=== PATIENT | male | born 1975 | race Hispanic/Latino ===

== ENCOUNTER 2018-07-20 04:02 | Emergency (ER) | payer OTHER ==
[2018-07-20 04:43] VITALS: RESP 18
[2018-07-20] MEDS ORDERED: Lidocaine 5% Patch TD STA (04:49)
[2018-07-20] MEDS ORDERED: Sodium Chloride 0.9% 1,000 ML IV STA (05:04)
--- NOTE | 2018-07-20 05:25 | ED PDOC ---
HPI: Back Chief Complaint (Provider): Back Pain History Per: Patient History/Exam Limitations: no limitations Onset/Duration Of Symptoms: Hrs (x2) Additional Complaint(s): 42 years old male with a history of asthma presents to ER for evaluation of left lower back pain onset 2 hours ago that woke him up from sleep. Patient reports he took 400 mg of Ibuprofen and states since coming to ED noted pain has began to alleviate but still present. He denies trauma, incontinence, dysuria, hematuria, rash, abdominal pain, nausea, vomiting, diarrhea, alleviating movements or positions and history of kidney stones. PMD: None provided <Speedy Walter - Last Filed: 07/20/18 06:18> <Carlos Munoz - Last Filed: 07/20/18 07:07> Time Seen by Provider: 07/20/18 04:43 Chief Complaint (Nursing): Back Pain Past Medical History Reviewed: Historical Data, Nursing Documentation, Vital Signs Vital Signs: Last Vital Signs Temp 97.9 F 07/20/18 04:25 Pulse 66 07/20/18 04:25 Resp 18 07/20/18 04:25 BP 138/85 07/20/18 04:25 Pulse Ox 98 07/20/18 04:25 - Medical History PMH: Asthma Denies: Chronic Kidney Disease - Surgical History Surgical History: No Surg Hx - Family History Family History: States: Unknown Family Hx - Social History Current smoker - smoking cessation education provided: No Alcohol: Social Drugs: Denies <Speedy Walter - Last Filed: 07/20/18 06:18> Vital Signs: Last Vital Signs Temp 97.9 F 07/20/18 04:25 Pulse 66 07/20/18 04:25 Resp 18 07/20/18 04:25 BP 138/85 07/20/18 04:25 Pulse Ox 98 07/20/18 05:31 <Carlos Munoz - Last Filed: 07/20/18 07:07> - Home Medications Home Medications: Ambulatory Orders Medication Instructions Recorded Hydrocodone/Acetaminophen [Vicodin 1 each PO Q8 #15 tablet 07/20/18 Es 7.5-300 mg Tablet] Ibuprofen [Motrin Tab] 600 mg PO Q6 #30 tab 07/20/18 Tamsulosin [Flomax] 0.4 mg PO DAILY #10 cap 07/20/18 - Allergies Allergies/Adverse Reactions: Allergies Allergy/AdvReac Type Severity Reaction Status Date / Time wheat Allergy ITCHING Verified 07/20/18 04:34 Review of Systems ROS Statement: Except As Marked, All Systems Reviewed And Found Negative Gastrointestinal: Negative for: Nausea, Vomiting, Abdominal Pain, Diarrhea Genitourinary Male: Negative for: Dysuria, Incontinence, Hematuria Musculoskeletal: Positive for: Back Pain (Left lower) Skin: Negative for: Rash <Speedy Walter Angelica - Last Filed: 07/20/18 06:18> Physical Exam - Reviewed Nursing Documentation Reviewed: Yes Vital Signs Reviewed: Yes - Physical Exam Appears: Positive for: Well, No Acute Distress Head Exam: Positive for: ATRAUMATIC, NORMOCEPHALIC Skin: Positive for: Normal Color, Warm, Dry Cardiovascular/Chest: Positive for: Regular Rate, Rhythm. Negative for: Murmur Respiratory: Positive for: Normal Breath Sounds. Negative for: Respiratory Distress Gastrointestinal/Abdominal: Positive for: Normal Exam, Soft. Negative for: Te nderness Back: Positive for: Other (Minimal tenderness to left paralumbar spasm). Negative for: L CVA Tenderness, R CVA Tenderness Neurological/Psych: Positive for: Awake, Alert, Oriented (x3) <Speedy Walter Angelica - Last Filed: 07/20/18 06:18> - Laboratory Results Result Diagrams: 07/20/18 05:20 07/20/18 05:20 - ECG O2 Sat by Pulse Oximetry: 98 (RA) Pulse Ox Interpretation: Normal <SabaSpeedy Dominguez - Last Filed: 07/20/18 06:18> - Laboratory Results Result Diagrams: 07/20/18 05:20 07/20/18 05:20 Lab Results: Total Bilirubin 0.4 mg/dl (0.2-1.3) 07/20/18 05:20 AST 22 U/L (17-59) 07/20/18 05:20 ALT 35 U/L (21-72) 07/20/18 05:20 Alkaline Phosphatase 88 U/L (38-126) 07/20/18 05:20 Total Protein 7.1 G/DL (6.3-8.2) 07/20/18 05:20 Albumin 3.9 g/dL (3.5-5.0) 07/20/18 05:20 Globulin 3.2 gm/dL (2.2-3.9) 07/20/18 05:20 Albumin/Globulin Ratio 1.2 (1.0-2.1) 07/20/18 05:20 Urine Color Yellow (YELLOW) 07/20/18 05:13 Urine Clarity Slighty-cloudy (Clear) 07/20/18 05:13 Urine pH 6.0 (5.0-8.0) 07/20/18 05:13 Ur Specific [place] 1.017 (1.003-1.030) 07/20/18 05:13 Urine Protein Negative mg/dL (NEGATIVE) 07/20/18 05:13 Urine Glucose (UA) Neg mg/dL (NEGATIVE) 07/20/18 05:13 Urine Ketones Negative mg/dL (NEGATIVE) 07/20/18 05:13 Urine Blood Large (NEGATIVE) 07/20/18 05:13 Urine Nitrate Negative (NEGATIVE) 07/20/18 05:13 Urine Bilirubin Negative (NEGATIVE) 07/20/18 05:13 Urine Urobilinogen 2.0 mg/dL (0.2-1.0) 07/20/18 05:13 Ur Leukocyte Esterase Neg Filomena/uL (Negative) 07/20/18 05:13 Urine RBC (Auto) 1345 /hpf (0-3) H 07/20/18 05:13 Urine Microscopic WBC 4 /hpf (0-5) 07/20/18 05:13 <Carlos Munoz - Last Filed: 07/20/18 07:07> Medical Decision Making Medical Decision Making: Time: 0503 Initial Plan: --CT Abdomen/Pelvis --CMP --Urine dipstick --CBC --Flexeril 10 mg PO --Lidoderm 1 ea TD --Urine culture --LS Spine X-Ray --Urinalysis U-dip shows large blood trace leuks Patient is informed of plan Scribe Attestation: Documented by Ludy Judge, acting as a scribe for DEVAUGHN Moreno. Provider Scribe Attestation: All medical record entries made by the Scribe were at my direction and personally dictated by me. I have reviewed the chart and agree that the record accurately reflects my personal performance of the history, physical exam, med [facility] decision making, and the department course for this patient. I have also personally directed, reviewed, and agree with the discharge instructions and disposition. <Speedy Walter E - Last Filed: 07/20/18 06:18> Medical Decision Makin Patient endorsed to me by DEVAUGHN Moreno, pending CT Abdomen/Pelvis. 06 CT Abdomen/Pelvis FINDINGS: The visualized lung bases are unremarkable. Normal unenhanced liver. Normal gallbladder and extrahepatic biliary system. Normal unenhanced spleen. Normal pancreas. Normal bilateral adrenal glands. Normal size of the right kidney. There is no right renal mass. There are no right renal calculi. There is no right hydronephrosis. Normal visualized right ureter. Normal size of the left kidney. There is no left renal mass. There are no left renal calculi. 4 mm obstructing stone of the left ureter at L3. Mild left hydroureteronephrosis. Normal visualized stomach. Normal small intestine. Normal colon. The appendix is visualized and appears normal. There is no demonstrated peritoneal fluid. Normal abdominal aorta. Normal inferior vena cava. Normal retroperitoneum. 3 mm nonobstructing stone in the right aspect of the diffusely thickened urinary bladder. There is no pelvic mass lesion or lymphadenopathy. There is no pelvic fluid. Mild prostatomegaly. Fat containing right inguinal hernia without incarceration. Fat containing umbilical hernia without incarceration. Normal osseous structures. IMPRESSION: Obstructing stone of the left ureter. Nonobstructing stone in the right aspect of the bladder. Mild prostatomegaly. Advised patient of results, patient states he feels a little sore but much better Advised patient that stone will likely pass on its own, but advised close followup with urology Advised patient that he should only take vicodin as absolutely necessary and advised him of its addictive potential Patient is very well appaering upon disharge Scribe Attestation: Documented by Ludy Judge, acting as a scribe for Carlos Munoz MD. Provider Scribe Attestation: All medical record entries made by the Scribe were at my direction and personally dictated by me. I have reviewed the chart and agree that the record accurately reflects my personal performance of the history, physical exam, medical decision making, and the department course for this patient. I have also personally directed, reviewed, and agree with the discharge instructions and disposition. <Carlos Munoz - Last Filed: 07/20/18 07:07> Disposition - Patient ED Disposition Is Patient to be Admitted: Transfer of Care (Dr. Munoz continued care at the end of my shift) - Disposition Disposition Time: 06:00 <Speedy Walter - Last Filed: 07/20/18 06:18> - Patient ED Disposition Is Patient to be Admitted: No - Disposition Disposition: Routine/Home Disposition Time: 07:06 <Carlos Munoz - Last Filed: 07/20/18 07:07> - Clinical Impression Clinical Impression: Hematuria, Kidney stone - Disposition Referrals: Oleksandr Scott MD [Medical Doctor] - Condition: IMPROVED Prescriptions: Hydrocodone/Acetaminophen [Vicodin Es 7.5-300 mg Tablet] 1 each PO Q8 #15 tablet Ibuprofen [Motrin Tab] 600 mg PO Q6 #30 tab Tamsulosin [Flomax] 0.4 mg PO DAILY #10 cap Instructions: Kidney Stones in Adults, Kidney Stone Diet, How to Strain Your Urine, Taking Narcotics Safely, Opioids for Short-Term Treatment of Pain Forms: [employer] [facility] (Amharic)
[2018-07-20 05:29] LABS: URINE BILIRUBIN NEGATIVE (NEGATIVE); URINE BLOOD LARGE (NEGATIVE); URINE CLARITY SLIGHTY-CLOUDY (Clear); URINE COLOR YELLOW (YELLOW); URINE GLUCOSE (UA) NEG (NEGATIVE); URINE LEUKOCYTE ESTERASE NEG Leu/uL (Negative); URINE PROTEIN NEGATIVE (NEGATIVE)
[2018-07-20 05:30] LABS: BASO # 0.1 K/uL (0.0-0.2); BASO % 1.3 % (0.0-2.0); EOS # 0.2 K/uL (0.0-0.7); EOS % 3.6 % (0.0-4.0); HEMOGLOBIN 14.1 g/dL (12.0-18.0); LYMPH # 0.9 K/uL (1.0-4.3); LYMPH % 17.5 % (20.0-40.0); MEAN CORPUSCULAR HEMOGLOBIN 29.5 pg (27.0-31.0); MEAN CORPUSCULAR HGB CONC 33.1 g/dL (33.0-37.0); MONO # 0.3 K/uL (0.0-0.8); MONO % 6.8 % (0.0-10.0); NEUT # 3.5 K/uL (1.8-7.0); NEUT % 70.8 % (50.0-75.0); RBC 4.78 Mil/uL (4.40-5.90); RED CELL DISTRIBUTION WIDTH 13.1 % (11.5-14.5)
[2018-07-20 05:39] LABS: ALB/GLOB RATIO 1.2 (1.0-2.1); ALBUMIN 3.9 g/dL (3.5-5.0); ALT/SGPT 35 U/L (21-72); AST/SGOT 22 U/L (17-59); BLOOD UREA NITROGEN 14 mg/dl (9-20); CALCIUM 9.2 mg/dL (8.4-10.2); GFR NON-AFRICAN AMERICAN > 60
[2018-07-20 07:31] VITALS: BP 135/80; PULSE 72; TEMP 97.8; O2SAT 99
--- NOTE | 2018-07-20 08:58 | RAD ---
Date of service: 07/20/2018 PROCEDURE: Radiographs of the Lumbar Spine. HISTORY: pain COMPARISON: No prior. FINDINGS: BONES: Normal alignment. No listhesis. No fracture. DISC SPACES: Unremarkable. OTHER FINDINGS: None. IMPRESSION: Unremarkable radiographs of the lumbar spine.
--- NOTE | 2018-07-20 12:02 | CT ---
Date of service: 07/20/2018 PROCEDURE: CT Abdomen and Pelvis without intravenous contrast HISTORY: hematuria, L sided back pain COMPARISON: None. TECHNIQUE: Technique. Contrast dose: Radiation dose: Total exam DLP = 858.29 mGy-cm. This CT exam was performed using one or more of the following dose reduction techniques: Automated exposure control, adjustment of the mA and/or kV according to patient size, and/or use of iterative reconstruction technique. FINDINGS: LOWER THORAX: Unremarkable. LIVER: Unremarkable. No gross lesion or ductal dilatation. GALLBLADDER AND BILE DUCTS: Unremarkable. PANCREAS: Unremarkable. No gross lesion or ductal dilatation. SPLEEN: Unremarkable. ADRENALS: Unremarkable. No mass. KIDNEYS AND URETERS: Partially obstructing calculus with minimal hydronephrosis. No solid mass. VASCULATURE: Unremarkable. No aortic aneurysm. No aortic atherosclerotic calcification or mural plaque present. BOWEL: Unremarkable. No obstruction. No gross mural thickening. APPENDIX: Unremarkable. Normal appendix. PERITONEUM: Unremarkable. No free fluid. No free air. LYMPH NODES: Unremarkable. No enlarged lymph nodes. BLADDER: Nonobstructing tiny calculus in the right urinary bladder. REPRODUCTIVE: Mild prostate enlargement. BONES: No acute fracture. OTHER FINDINGS: None. IMPRESSION: Partially obstructing calculus with minimal hydronephrosis. Nonobstructing tiny calculus in the right urinary bladder.
== END 2018-07-20 07:19 | disposition home or self-care (01) ==
LOC: H.ER 04:02
DX: R31.9 Hematuria, unspecified (principal); N20.0 Calculus of kidney; J45.909 Unspecified asthma, uncomplicated; N40.0 Benign prostatic hyperplasia without lower urinary tract symptoms
CPT/HCPCS: 72100; 74176; 80053; 81003; 85025; 87086; 96360; 99284; J7030